=== PATIENT | female | born 1985 | race Caucasian/White ===

== ENCOUNTER → 2018-04-07 12:33 | Outpatient (CLI) | payer OTHER, SELFPAY ==
--- NOTE | 2018-04-07 12:34 | DI.US.S_ITS ---
PROCEDURE: US OB >= 14 WEEKS FETUS INDICATIONS: ANATOMY OUTSIDE/PRIOR DATING DATA: Last menstrual period (LMP): 11/11/17. LMP-based estimated date of delivery (MARILIN): 08/18/18. First dating scan (date and location): 12/19/17. Estimated date of delivery (MARILIN) from first dating scan: 08/19/18. TECHNIQUE: Real-time scanning was performed of the fetus, with image documentation and biometric measurements. Endovaginal scanning: No COMPARISON: [facility], , OB >= 14 WEEKS FETUS, 03/14/2018, 12:18. FINDINGS: General: A single living intrauterine gestation is present. Presentation: Oblique. Placenta: Placental position is posterior, without previa. Amniotic fluid index: 15.5 cm, normal range is 5-24 cm. heart rate: 150 beats per minute. Maternal cervical canal: 3.3 cm long. Normal lower limit is 2.5 cm. biometrics: Biparietal diameter: 20 weeks 6 days Head circumference: 20 weeks 6 days Abdominal circumference: 21 weeks 2 days Femur length: 21 weeks 1 day Estimated gestational age from initial scan: 20 weeks 6 days Composite gestational age from present scan: 21 weeks Estimated weight and percentile: 403 g; 61st percentile Measurement variability for biometric dating: +/- 7 days from 14 weeks to 15 weeks 6 days gestation, +/- 10 days from 16 weeks to 21 weeks 6 days gestation, +/- 2 weeks from 22 weeks to 27 weeks 6 days gestation, +/- 3 weeks for 28 weeks gestation or later. weight reference: 4500 g or EFW >90/95% is considered macrosomia or large for gestational age. EFW <10% is small for gestational age. EFW 5% or less is considered intra-uterine growth restriction. Anatomic survey: Neuro: Ventricles are non-dilated at less than 10 mm. Cisterna magna is normal at 3-11 mm. Cerebellum is normal in size and morphology. Nuchal skin fold: Normal at less than 6 mm between 14-21 weeks gestational age. Face: Nose and lips, facial profile are normal. Spine: No evidence for spina bifida. Heart: 4-chambered heart is present, with normal ventricular outflow tracts. Diaphragm: Diaphragm is intact. Stomach: Left-sided stomach is present. Kidneys: No hydronephrosis. Normal is less than 5 mm in 2nd trimester, less than 7 mm in 3rd trimester. Cord: 3-vessel cord has orthotopic insertion. Bladder: Normal in size. Extremities: All 4 extremities identified. IMPRESSION: 1. Normal interval growth. 2. Normal anatomic survey. Dictated by: Nasir BROWN Interpreted: Jose Maria Romero MD on 04/07/2018 at 15:24 Approved by: Papi Romero M.D. on 04/07/2018 at 16:28
== END ==
PROVIDERS: PCP Naturopath; Visit Provider Specialist
DX: Z36.89 Encounter for other specified antenatal screening (principal); Z3A.21 21 weeks gestation of pregnancy
CPT/HCPCS: 76811

== ENCOUNTER → 2018-04-09 08:53 | Outpatient (CLI) | payer OTHER, SELFPAY ==
[2018-04-09 14:23] LABS: Urine N gonorrhoeae NOT DETECTED
[2018-04-09 14:27] LABS: Urine Chlamydia NOT DETECTED
== END ==
PROVIDERS: PCP Naturopath; Visit Provider Specialist
DX: Z3A.21 21 weeks gestation of pregnancy (principal)
CPT/HCPCS: 87491; 87591

== ENCOUNTER → 2018-05-15 11:22 | Outpatient (CLI) | payer OTHER, SELFPAY ==
[2018-05-15 13:42] LABS: Hematocrit 32.4 % (36-46); Hemoglobin 11.2 g/dL (12.0-16.0)
[2018-05-15 14:00] LABS: GTT (PREG) 1 Hour PP 50gm Dose 105 mg/dL (76-139)
== END ==
PROVIDERS: Visit Provider Specialist
DX: Z3A.26 26 weeks gestation of pregnancy (principal)
CPT/HCPCS: 36415; 82950; 85014; 85018

== ENCOUNTER → 2018-06-23 16:34 | Outpatient (CLI) | payer OTHER, SELFPAY ==
[2018-06-23 16:51] LABS: Hematocrit 32.4 % (36-46)
== END ==
PROVIDERS: PCP Naturopath; Visit Provider Specialist
DX: Z3A.26 26 weeks gestation of pregnancy (principal)
CPT/HCPCS: 36415; 85014; 85018

== ENCOUNTER → 2018-07-21 10:28 | Outpatient (CLI) | payer OTHER, SELFPAY ==
[2018-07-22 08:40] LABS: Strep Grp B PCR POS for Grp B Strep
== END ==
PROVIDERS: PCP Naturopath; Visit Provider Specialist
DX: Z34.03 Encounter for supervision of normal first pregnancy, third trimester (principal); Z3A.36 36 weeks gestation of pregnancy
CPT/HCPCS: 87653

== ENCOUNTER 2018-08-07 19:09 | Outpatient (CLI) | payer OTHER, SELFPAY | END 2018-08-07 20:00 | disposition home or self-care (01) | LOC: OB 08-11 10:44 | PROVIDERS: PCP Naturopath | DX: Z34.83 Encounter for supervision of other normal pregnancy, third trimester (principal); Z3A.38 38 weeks gestation of pregnancy | CPT/HCPCS: 59025; G0378; G0379 ==

== ENCOUNTER 2018-08-13 10:46 | Inpatient (IN) | payer OTHER, SELFPAY ==
[2018-08-13] MEDS: LACTATED RINGERS 1,000 ML 100 ML IV ×2 (11:20→21:04)
[2018-08-13] MEDS: PENICILLIN G POTASSIUM 5,000,000 UNIT in DEXTROSE 5% IN WATER 250 ML IV (11:30)
[2018-08-13] MEDS: OXYTOCIN PREMIX 30 UNIT/500 ML PLAST..BAG IV (12:00)
[2018-08-13 12:23] VITALS: BP 124/74
[2018-08-13 12:24] LABS: Add Manual Diff / Slide Review NO; Basophils Percent Auto 0.5 % (0-2); Eosinophils Percent Auto 0.6 % (2-4); Hematocrit 35.2 % (36-46); Hemoglobin 11.6 g/dL (12.0-16.0); Lymphocytes Percent Auto 14.4 % (25-40); Mean Corpuscular HGB Conc 32.9 % (30-36); Mean Corpuscular Hemoglobin 26.3 PG (26-34); Monocytes Percent Auto 7.5 % (3-14); Neutrophils Absolute Auto 6400 /uL (3000-5900); Platelet Count 235 X10^3/uL (150-400); Red Blood Cell Count 4.41 X10^6/uL (4.0-5.2); Red Cell Distribution Width 16.1 % (11.6-14.8); White Blood Cell Count 8.3 X10^3/uL (4.5-11.0)
[2018-08-13] MEDS: PENICILLIN G POTASSIUM 3,000,000 UNIT/50 ML FROZ.PIGGY 100 UNIT IV ×2 (14:30→19:21)
--- NOTE | 2018-08-13 17:00 | P.HPOB_ITS ---
OB HPI Date/Time Date of admission: 08/13/18 Date Patient Seen: 08/13/18 Time Patient Seen: 11:56 History of Present Condition Chief complaint: OBSERVATION : 1 Para: 0 Estimated Date of Delivery: 08/18/18 Estimated Gestational Age (weeks): 39 Narrative: Regina Stanton is a 33 year old female admitted for induction for advanced cervical dilation at term with positive group B strep culture Indications Indication for induction OB: other (Advanced cervical dilation at term with positive group B strep culture) History of Present care: good care, initiated at week # (8), number of visits (12) and pounds weight gain (34) Dating criteria: LMP confirmed by 1st trimester US Ultrasounds: normal mid trimester US Obstetrical complications: none Medical complications: none Preadmission Labs Blood type: O (+) positive -: Antibody screen: negative, GBS status: positive, HBsAG: negative, HIV: negative, HSV 1: positive, HSV 2: negative and RPR/VDLR: negative -: Chlamydia screen: not detected and Gonorrhea screen: not detected -: Rubella: not immune and Varicella: immune HCAB: negative 1 hr GTT: 105 Evaluation Evaluation Baseline heart rate: 130 Variability: Moderate (11-25) monitor accelerations: Present monitor decelerations: Absent Uterine Contraction Intensity: Mild Category of Tracing: I Cervical dilation (cm): 6 Cervical effacement (%): 100 station: -4 Laboratory results: Laboratory Tests 08/13/18 08/13/18 11:30 11:30 WBC 8.3 RBC 4.41 Hgb 11.6 L Hct 35.2 L MCV 80.0 MCH 26.3 MCHC 32.9 RDW 16.1 H Plt Count 235 Neut % (Auto) 77.0 H Lymph % (Auto) 14.4 L [place] % (Auto) 7.5 Eos % (Auto) 0.6 L Baso % (Auto) 0.5 Neut # (Auto) 6400 H Blood Type O Positive Antibody Screen Negative PFSH Medical History H/O menorrhagia (Chronic) Hx of migraines (Chronic) Surgical History History of cholecystectomy (Inactive) Social History Smoking Status: Never smoker Meds Home Medications Medication Instructions Recorded Confirmed Type obumtbahmx-axqdcoruovqfs-dhwcovdy 1 cap PO Q4H PRN #20 cap 06/27/18 Rx 50 mg-300 mg-40 mg capsule Allergies Allergy/AdvReac Type Severity Reaction Status Date / Time acetaminophen [From VICODIN] Allergy Mild CHEST PAIN Unverified 01/22/18 11:54 hydrocodone [From VICODIN] Allergy Mild CHEST PAIN Unverified 01/22/18 11:54 NARCOTICS Allergy Mild N/V Uncoded 01/22/18 11:54 Review of Systems Review of Systems Patient denies any signs or symptoms of preeclampsia. No leakage of fluid. Good movement. No regular contractions. No fevers. All systems reviewed & are unremarkable except as noted in HPI and below Exam Vital Signs (past 8 hours): - 08/13/18 12:23 Blood Pressure 124/74 Narrative Exam Narrative: HEENT exam within normal limits. Lungs are clear to auscultation and percussion. Heart is regular rate and rhythm no S3-S4 or murmurs. Abdomen is soft, nontender. Gravid uterus with vertex infant. Extremities with trace edema and nontender Objective Labs Result Diagrams: 08/13/18 11:30 Labs: Laboratory Results - last 24 hr 08/13/18 08/13/18 11:30 11:30 WBC 8.3 RBC 4.41 Hgb 11.6 L Hct 35.2 L MCV 80.0 MCH 26.3 MCHC 32.9 RDW 16.1 H Plt Count 235 Neut % (Auto) 77.0 H Lymph % (Auto) 14.4 L [place] % (Auto) 7.5 Eos % (Auto) 0.6 L Baso % (Auto) 0.5 Neut # (Auto) 6400 H Blood Type O Positive Antibody Screen Negative Assessment and Plan (1) 39 weeks gestation of : Current visit: Yes Status: Acute (2) Third trimester : Current visit: Yes Status: Acute Plan: Plan: 39 and 2/7 week with advanced cervical dilation and positive group B strep admitted for induction. Patient will receive IV penicillin and begun on Pitocin prior to AROM induction. Anticipate vaginal delivery.
[2018-08-13] MEDS: ONDANSETRON 4 MG/2 ML INJ IV (21:03)
--- NOTE | 2018-08-13 23:29 | P.PCNOB_ITS ---
Events: Labor Induction (Thirty-nine weeks with advanced cervical dilation and positive group B strep culture) Delivery date: 08/13/18 Induction method: per pitocin protocol Delivery monitor: external FHT and external uterine Route of delivery: Laceration description: None Estimated blood loss (mL): 100 Anesthesia type: Epidural [place] Baby 1: Infant gender: Male Presentation: compound (Hand next to the head) position: Right Occiput Anterior Placenta delivery description: Spontaneous cord vessel description: Around Extremity x1 (Shoulder) score (1 min): 7 score (5 min): 9 Narrative: Patient arrived on Labor and delivery for Pitocin induction for advanced cervical dilation and positive group B strep culture. She was started on IV Pitocin. She received an epidural catheter for pain control. She was a ROM for clear fluid. heart tones category 1 to category 2 throughout labor. She delivered spontaneously over an intact perineum a viable male infant. The infant was initially placed on maternal abdomen but then briefly taken to the warmer where he responded just to stimulation. He was quickly returned to maternal abdomen. The had a shoulder cord and presented with a hand next to the head. The placenta delivered spontaneously, intact, with 3 vessels. There were no cervical, vaginal, or perineal tears. Weight &3 10 oz, 3464gm. Plan for aftercare: Routine post vaginal delivery
[2018-08-14 05:41] LABS: Add Manual Diff / Slide Review NO; Basophils Percent Auto 0.1 % (0-2); Hematocrit 31.7 % (36-46); Hemoglobin 10.6 g/dL (12.0-16.0); Lymphocytes Percent Auto 6.6 % (25-40); Mean Corpuscular HGB Conc 33.4 % (30-36); Mean Corpuscular Hemoglobin 26.6 PG (26-34); Mean Corpuscular Volume 79.5 fL (80-100); Monocytes Percent Auto 6.7 % (3-14); Neutrophils Absolute Auto 13100 /uL (3000-5900); Neutrophils Percent Auto 86.6 % (50-75); Platelet Count 215 X10^3/uL (150-400); Red Blood Cell Count 3.99 X10^6/uL (4.0-5.2); Red Cell Distribution Width 16.2 % (11.6-14.8); White Blood Cell Count 15.1 X10^3/uL (4.5-11.0)
[2018-08-14] MEDS: DOCUSATE 250 MG CAPSULE PO (08:19)
[2018-08-14] MEDS: DERMOPLAST SPRAY 20% 60 ML 1 SPRAY TOP (08:19)
[2018-08-14] MEDS: IBUPROFEN 600 MG TABLET PO ×3 (08:22→20:33)
--- NOTE | 2018-08-14 17:08 | PM.OBPN.1 ---
Subjective - OB Interval history: First day post vaginal delivery Patient comments: no complaints baby status: doing well [place] feeding status: exclusively breast feeding Narrative: Patient is doing well. She has no signs or symptoms of preeclampsia. She is ambulatory. She has minimal bleeding. Minimal pain. Date Patient Seen: 08/14/18 Time Patient Seen: 13:08 Exam Narrative Exam Narrative: Abdomen is soft, nontender. Uterus is firm, at U, nontender. Mild lochia. Extremities with trace edema, nontender. Objective Labs Result Diagrams: 08/14/18 05:05 Labs: Laboratory Results - last 24 hr 08/14/18 05:05 WBC 15.1 H D RBC 3.99 L Hgb 10.6 L Hct 31.7 L MCV 79.5 L MCH 26.6 MCHC 33.4 RDW 16.2 H Plt Count 215 Neut % (Auto) 86.6 H Lymph % (Auto) 6.6 L [place] % (Auto) 6.7 Eos % (Auto) 0.0 L Baso % (Auto) 0.1 Neut # (Auto) 40480 H Assessment & Plan (1) 39 weeks gestation of : Status: Acute Current Visit: Yes (2) Third trimester : Status: Acute Current Visit: Yes (3) Vaginal delivery: Status: Acute Assessment and plan: Normal day 1. Likely home in a.m. Current Visit: Yes Plan day: 1 plan OB: routine care Time Spent With Patient Total time spent is greater than 50% in coordination of care (as documented) at patient's floor/unit and/or counseling patient: less than 15 minutes
--- NOTE | 2018-08-14 17:11 | P.PNOB_ITS ---
Subjective - OB Interval history: First day post vaginal delivery Patient comments: no complaints baby status: doing well [place] feeding status: exclusively breast feeding Narrative: Patient is doing well. She has no signs or symptoms of preeclampsia. She is ambulatory. She has minimal bleeding. Minimal pain. Date Patient Seen: 08/14/18 Time Patient Seen: 13:08 Exam Narrative Exam Narrative: Abdomen is soft, nontender. Uterus is firm, at U, nontender. Mild lochia. Extremities with trace edema, nontender. Objective Labs Result Diagrams: 08/14/18 05:05 Labs: Laboratory Results - last 24 hr 08/14/18 05:05 WBC 15.1 H D RBC 3.99 L Hgb 10.6 L Hct 31.7 L MCV 79.5 L MCH 26.6 MCHC 33.4 RDW 16.2 H Plt Count 215 Neut % (Auto) 86.6 H Lymph % (Auto) 6.6 L [place] % (Auto) 6.7 Eos % (Auto) 0.0 L Baso % (Auto) 0.1 Neut # (Auto) 63528 H Assessment & Plan (1) 39 weeks gestation of : Status: Acute Current Visit: Yes (2) Third trimester : Status: Acute Current Visit: Yes (3) Vaginal delivery: Status: Acute Assessment and plan: Normal day 1. Likely home in a.m. Current Visit: Yes Plan day: 1 plan OB: routine care Time Spent With Patient Total time spent is greater than 50% in coordination of care (as documented) at patient's floor/unit and/or counseling patient: less than 15 minutes
[2018-08-15] MEDS: IBUPROFEN 600 MG TABLET PO (04:10)
--- NOTE | 2018-08-15 09:17 | PM.DS.1 ---
History of Present Illness Date Patient Seen: 08/15/18 Time Patient Seen: 09:20 Chief complaint: OBSERVATION Narrative: day 1. Vaginal delivery Discharge Providers Date of admission: 08/13/18 10:46 Primary care physician: Brianna Stanley ND Consults: 08/13/18 11:06 Consult to Anesthesiology Urgent Comment: Consulting Provider: Anesthesiologist Reason for consultation: Epidural Has provider been notified: No 08/14/18 01:54 Consult to Veterinary Surgeon Routine Comment: Discharge provider: Shira Osuna MD Discharge Date: 08/15/18 Summary Discharge Diagnosis: Vaginal delivery Hospital Course: Patient arrived on Labor and delivery for induction for advanced cervical dilation and positive group B strep culture. She received IV antibiotics, IV Pitocin, epidural catheter. She had a spontaneous vaginal delivery of a viable male weighing 7 lb 10 oz, 3464 g. Patient and infant did well . She denies any signs or symptoms of preeclampsia. She is urinating and ambulating well. She has no fevers. Her bleeding is minimal. Patient's blood type is O positive she is rubella nonimmune so received rubella vaccine prior to discharge. Status at Discharge Functional status at discharge: independent ambulation Overall status at discharge: patient is progressing back to baseline Time Spent with Patient Less than 30 minutes Exam Vital Signs (past 8 hours): Blood pressure 103/70, pulse of 78, temperature 98.4? Narrative Exam Narrative: Abdomen is soft, nontender. Uterus is firm, at U, nontender. Mild lochia. Extremities with trace edema nontender. Objective Labs Result Diagrams: 08/14/18 05:05 Discharge Plan Discharge Plan Patient Disposition: Home Discharge Med Rec/Prescriptions Prescriptions: No Action xmhrqwnnuu-nsawajrevozrs-obqf [Fioricet] 50-300-40 mg capsule 1 cap PO Q4H PRN (Reason: headache) Qty: 20 RF: 0 Follow up/Referrals: Brianna Stanley ND [Primary Care Provider] - Shira Osuna MD [Physician] - 1 Month Provider Discharge Instructions Diet: Regular Activity: Nothing in vagina for 4 weeks Skin/Wound/Dressing Care Report to your healthcare provider any signs of infection, such as:: chills, fever, increased pain and unusual drainage Discharge Data Primary Care Provider: Brianna Stanley Attending Provider: Shira Osuna Admit Date/Time: 08/13/18 10:46
[2018-08-15 09:38] VITALS: BP 103/70; PULSE 78; RESP 16; TEMP 36.9
[2018-08-15] MEDS: MEASLES,MUMPS,RUBELLA VACC/PF 0.5 ML VIAL SUBCUT (12:43)
== END 2018-08-15 13:00 | disposition home or self-care (01) | DRG 807 ==
PROVIDERS: Admitting Provider Specialist; PCP Naturopath; Visit Provider Specialist
DX: O99.824 Streptococcus B carrier state complicating childbirth (principal); Z37.0 Single live birth; Z3A.39 39 weeks gestation of pregnancy; O32.6XX0 Maternal care for compound presentation, not applicable or unspecified
CPT/HCPCS: 01967; 36415; 59050; 59400; 85025; 86850; 86900; 86901; G0379; J2405; J2540; J2590; J3010

== ENCOUNTER → 2021-07-18 09:14 | Outpatient (CLI) | payer OTHER, SELFPAY ==
[2021-07-18 09:52] LABS: Add Manual Diff / Slide Review NO; Basophils Absolute Auto 0 /uL (0-100); Basophils Percent Auto 0.9 % (0-2); Eosinophils Absolute Auto 100 /uL (0-450); Eosinophils Percent Auto 1.8 % (2-4); Hematocrit 39.4 % (36-46); Hemoglobin 13.2 g/dL (12.0-16.0); Lymphocytes Absolute Auto 1400 /uL (1100-4500); Lymphocytes Percent Auto 28.3 % (25-40); Mean Corpuscular HGB Conc 33.5 % (30-36); Mean Corpuscular Hemoglobin 27.8 PG (26-34); Monocytes Absolute Auto 300 /uL (0-900); Monocytes Percent Auto 5.5 % (3-14); Neutrophils Absolute Auto 3200 /uL (1500-7000); Neutrophils Percent Auto 63.5 % (50-75); Platelet Count 317 X10^3/uL (150-400); Red Blood Cell Count 4.75 X10^6/uL (4.0-5.2); Red Cell Distribution Width 12.9 % (11.6-14.8)
[2021-07-18 10:24] LABS: Iron 105 ug/dL (37-170)
[2021-07-18 10:34] LABS: Percent Iron Saturation 31 % (15-50); Total Iron Binding Capacity 337 ug/dL (265-497)
[2021-07-18 10:55] LABS: Ferritin 33 ng/mL (6-137)
== END ==
PROVIDERS: PCP Naturopath; Referring Provider Registered Nurse; Visit Provider Registered Nurse
DX: N92.4 Excessive bleeding in the premenopausal period (principal)
CPT/HCPCS: 36415; 82728; 83540; 83550; 85025

== ENCOUNTER → 2022-05-17 14:37 | Outpatient (CLI) | payer OTHER, SELFPAY ==
--- NOTE | 2022-05-17 14:40 | DI.US.S_ITS ---
PROCEDURE: US OB >= 14 WEEKS FETUS INDICATIONS: 20 WK ANATOMY SCAN. OUTSIDE/PRIOR DATING DATA: Last menstrual period (LMP): 12/18/2021 LMP-based estimated date of delivery (MARILIN): 09/24/2022. First dating scan (date and location): Not available Estimated date of delivery (MARILIN) from first dating scan: Not available The calculations are made using the clinically provided MARILIN of 09/24/2022 TECHNIQUE: Real-time scanning was performed of the fetus, with image documentation and biometric measurements. Endovaginal scanning: Not indicated COMPARISON: [facility], , OB >= 14 WEEKS FETUS, 06/09/2018, 11:15. FINDINGS: General: A single living intrauterine gestation is present. Presentation: Breech/transverse Placenta: Placental position is anterior, without previa. Amniotic fluid index: 9.8 cm, normal range is 5-24 cm. Single deepest vertical pocket is 3.3 cm. heart rate: 144 beats per minute. Maternal cervical canal: 5.1 cm long. Normal lower limit is 2.5 cm. biometrics: Biparietal diameter: 4.8 cm, 20 weeks, 4 days. Head circumference: 18.5 cm, 20 weeks, 6 days. Abdominal circumference: 15.1 cm, 20 weeks, 2 days. Femur length: 3.5 cm, 21 weeks, 1 day. Clinically estimated gestational age: 21 weeks, 3 days. Composite gestational age from present scan: 20 weeks, 5 days. Estimated weight and percentile: 374 grams, 15 percent. Anatomic survey: Neuro: Ventricles are non-dilated at less than 10 mm. Cisterna magna is normal at 3-11 mm. Cerebellum is normal in size and morphology. Nuchal skin fold: Normal at less than 6 mm between 14-21 weeks gestational age. Face: Nose and lips, facial profile are normal. Spine: spine is not well seen due to position. Heart: 4-chambered heart is present, with normal ventricular outflow tracts. Diaphragm: Diaphragm is intact. Stomach: Left-sided stomach is present. Kidneys: No hydronephrosis. Normal is less than 5 mm in 2nd trimester, less than 7 mm in 3rd trimester. Cord: 3-vessel cord is seen. Core insertion on placenta is not well seen. Bladder: Normal in size. Extremities: All 4 extremities identified. IMPRESSION: 1. Single live intrauterine gestation with fetus in breech/transverse presentation. heart rate is 144 beats per minute. Normal amount of amniotic fluid. Estimated gestational age based on current study is 20 weeks, 5 days. Estimated gestational age based on last menstrual period is 21 weeks, 3 days. Estimated weight is at 15 percent. 2. Limited evaluation of spine and placental cord insertion. Rest of the anatomic survey is normal. We strive to produce accurate, complete, and clear reports of imaging services. To assist us in improving patient care, this report was composed using standard report templates and voice recognition software. Therefore, it may contain abnormal punctuation, insertions and/or omissions. Occasional wrong-word or sound-alike substitutions may occur. Though we review the report and make efforts to correct it, we do recommend that the report be read carefully in proper context to recognize any text inaccuracies. Dictated by: Joshua Bassett M.D. on 05/18/2022 at 11:24 Approved by: Joshua Bassett M.D. on 05/18/2022 at 11:28
== END ==
PROVIDERS: PCP Naturopath; Referring Provider Nurse Practitioner Obstetrics & Gynecology; Visit Provider Nurse Practitioner Obstetrics & Gynecology
DX: Z34.92 Encounter for supervision of normal pregnancy, unspecified, second trimester (principal); Z3A.20 20 weeks gestation of pregnancy
CPT/HCPCS: 76811

== ENCOUNTER → 2022-06-28 07:58 | Outpatient (CLI) | payer OTHER, SELFPAY ==
[2022-06-28 10:28] LABS: Hematocrit 34.3 % (36-46); Mean Corpuscular Hemoglobin 28.8 PG (26-34); Mean Corpuscular Volume 82.4 fL (80-100); Platelet Count 276 X10^3/uL (150-400); Red Blood Cell Count 4.17 X10^6/uL (4.0-5.2); Red Cell Distribution Width 13.3 % (11.6-14.8); White Blood Cell Count 8.6 X10^3/uL (4.5-11.0)
[2022-06-28 11:17] LABS: Glucose Fasting 81 mg/dL (70-100)
[2022-06-28 11:29] LABS: Glucose 1 Hour 181 mg/dL (70-170)
[2022-06-28 11:50] LABS: Ferritin 7 ng/mL (6-137)
[2022-06-28 14:25] LABS: Glucose Tol Interpretation INTERPRETATION
[2022-06-28 14:32] LABS: Glucose 2 Hour 154 mg/dL (70-140)
== END ==
PROVIDERS: PCP Naturopath; Referring Provider Nurse Practitioner Obstetrics & Gynecology; Visit Provider Nurse Practitioner Obstetrics & Gynecology
DX: Z34.90 Encounter for supervision of normal pregnancy, unspecified, unspecified trimester (principal); Z3A.26 26 weeks gestation of pregnancy
CPT/HCPCS: 36415; 82728; 82951; 82952; 85027

== ENCOUNTER → 2022-07-11 16:00 | Outpatient (CLI) | payer OTHER, SELFPAY ==
--- NOTE | 2022-07-17 08:56 | DIAB.GDA ---
Initial Gestational Diabetes Assessment Name: Regina Stanton Date: 07/11/22 Time: 430-530p Dx: Gestational Diabetes Provider: Pierce MARILIN: 09/24/22 Weeks: 30 Regina presents for initial visit for newly dx GDM. FH of DM with maternal grandmother. No PMH of GDM. Previous child born <8# 4 years ago. Regina is having a boy! States she has drastically changed her diet by cutting out many carbs. She also endorses gluten intolerance over the last 7 years. Current CHO intake <175g rec by INSPECTORS AND REGULATORY OFFICERS during . Not yet checking BG. Has rx for meter and supplies. Diet Recall: 6-730a: string cheese and sausage 8a: veggies and meat/eggs 1030a: chicken salad on lettuce wrap 12p: leftovers 2 snacks in afternoon: celery and PB or celery and cream cheese or stuffed harris peppers or meat and cheese 5p: ground poultry with taco salad, no beans or rice 7-8p: nuts or meat Beverages: 72-96oz water Anthropometrics: Ht: 63 Wt: 190# reported Prepregnancy wt: 175# Physical Activity: 10 min walks after each meal + 3days per week walks 45 min Self-Monitoring Blood Glucose: None Diabetes Medications: None Pertinent Labs: OGTT 81, 181 H, 154 H hgA1c at 10 weeks: 5% Nutrition Rx: Carbohydrates: Daily: 175-210g Meal: 45-60g lunch and dinner; 30g breakfast Snack: 15-30g Nutrition Diagnosis: Altered nutrition related lab value r/t GDM dx aeb recent OGTT Inadequate CHO intake r/t lack of nutrition knowledge with new dx of GDM aeb pt report and diet recall Intervention: This participant was very receptive. Provided appropriate educational handouts. Discussed the following topics: GDM pathophysiology and impact of hyperglycemia on mom and baby Risk for T2DM for mom and baby in the future Ways to reduce risk T2DM Plate Method, meal timing, carb counting, pairing macronutrients and spreading out CHO for better BG management Blood glucose goals; importance of checking 4x per day (FBG and pc) Impact of macronutrients on blood glucose Recommended servings for carbohydrates at meals and snacks Brainstormed appropriate meal plan based on her food preferences Role of physical activity and following provider guidelines for safety Goals: Add carbs back into diet in moderation Call [facility] tomorrow for SMBG supplies Check BG 4 x per day Continues walking Follow-up: BRAYAN HOSKINS follow-up in one week Aidee Wilkerson RDN, GATO Certified Diabetes Care and Freight Flow Sales Leader T: [phone] F: [phone] [email or web address] Thank you for this referral
== END ==
PROVIDERS: PCP Naturopath; Referring Provider Nurse Practitioner Obstetrics & Gynecology; Visit Provider Nurse Practitioner Obstetrics & Gynecology
DX: O24.419 Gestational diabetes mellitus in pregnancy, unspecified control (principal); Z3A.30 30 weeks gestation of pregnancy; Z71.3 Dietary counseling and surveillance
CPT/HCPCS: 97802

== ENCOUNTER → 2022-07-16 10:37 | Outpatient (CLI) | payer OTHER, SELFPAY ==
--- NOTE | 2022-07-16 | DI.US.S_ITS ---
PROCEDURE: US OB FOLLOW UP INDICATIONS: FOLLOW UP SPINE AND PLACENTAL CORD INSERTION OUTSIDE/PRIOR DATING DATA: Last menstrual period (LMP): 12/18/21. LMP-based estimated date of delivery (MARILIN): 09/24/22. First dating scan (date and location): Unknown. Estimated date of delivery (MARILIN) from first dating scan: Not applicable. The calculations are made using the working MARILIN of 09/24/22. TECHNIQUE: Real-time scanning was performed of the fetus, with image documentation. Endovaginal scanning: Not performed COMPARISON: [facility], , US OB >= 14 WEEKS FETUS, 05/17/2022, 14:52. FINDINGS: A single living intrauterine gestation is present. Presentation: Vertex. Placenta: Placental position is anterior, without previa. Amniotic fluid index: 15.7 cm, normal range is 5-24 cm. Single deepest vertical pocket is 5.3 cm. heart rate: 139 beats per minute. Maternal cervical canal: Closed and 4.9 cm long. Normal lower limit is 2.5 cm. Clinically estimated gestational age: 30 weeks 0 days The umbilical cord inserts along the inferolateral margin of the placenta between four and 11 mm from the edge. cervical and thoracic spine and skin covering spine appear normal, however lumbosacral spine and overlying skin are not well seen due to lie. IMPRESSION: 1. Single living intrauterine . 2. Incomplete visualization of the lumbosacral spine secondary to lie. 3. Marginal cord insertion. 4. Repeat follow-up ultrasound for spine and reassessing cord insertion later in could be considered. Dictated by: Alyse Nicolas M.D. on 07/16/2022 at 14:48 Approved by: Alyse Nicolas M.D. on 07/16/2022 at 14:55
== END ==
PROVIDERS: PCP Naturopath; Referring Provider Nurse Practitioner Obstetrics & Gynecology; Visit Provider Nurse Practitioner Obstetrics & Gynecology
DX: Z3A.30 30 weeks gestation of pregnancy; Z36.2 Encounter for other antenatal screening follow-up
CPT/HCPCS: 76816

== ENCOUNTER → 2022-08-02 08:30 | Outpatient (CLI) | payer OTHER, SELFPAY ==
--- NOTE | 2022-08-02 10:14 | DIAB.GDFU ---
Follow-up Gestational Diabetes Assessment Name: Regina Stanton Date: 08/02/22 Time: 830-9a Dx: Gestational Diabetes Provider: Pierce MARILIN: 09/24/22 Weeks: 32 Regina presents for follow-up visit virtually using [employer] platform. Has been working on adding more carbs into diet, though still below BIOLOGIST at about 110-140g CHO per day. Having some early satiety with meals and heartburn all day. Tums not helping. Drinking baking soda with water. Discussed this with her sister, an RN. Encouraged her to discuss with battery container tester. She agreed. Difficulty sleeping. Feeling overall uncomfortable and waking frequently. Diet Recall: 0a: sausage, eggs, veggies, piece of GF toast or bagel 11a: 1-2c chickpea pasta with tomato or pesto sauce (45-60g CHO) or ?-1 harris pepper sandwich or salad with chicken Sn: apples and PB or celery and nut butter or hummus with veggies or meat/cheese with fruit 345p: same as above snack 6-7p: meat, veggie, 1 potato or 1c GF pasta Beverages: 72-96oz water Sees Lola next week. Anthropometrics: Ht: 63 Wt: 187.5# reports +2# gain since last visit Last visit: 190# reported (from provider office- states this is usually higher than home wt) Prepregnancy wt: 175# Physical Activity: Was going well until the recent smoke. Trying to be active inside. Prior activity: 10 min walks after each meal + 3days per week walks 45 min Self-Monitoring Blood Glucose: States she cannot access her meter log book. Will send numbers after appt. 1 hour highest was 144 mg/dl. Reports most readings below 140 (usually in the 130s range). FBG range from 88-99 mg/dL. Reports most <95 mg/dL. States 2 or less above 95 mg/dL in the last week. Asking about checking after the 1 hr Diabetes Medications: None Pertinent Labs: OGTT 81, 181 H, 154 H hgA1c at 10 weeks: 5% Nutrition Rx: Carbohydrates: Daily: 175-210g Meal: 45-60g lunch and dinner; 30g breakfast Snack: 15-30g Nutrition Diagnosis: Altered nutrition related lab value r/t GDM dx aeb recent OGTT Inadequate CHO intake r/t lack of nutrition knowledge with new dx of GDM aeb pt report and diet recall Intervention: This participant was very receptive. Provided appropriate educational handouts. Discussed the following topics: Recent blood sugar results and impact of food and hormones BIOLOGIST for CHO during . Ways to improve nutrition with early satiety, ie shakes/ smoothies Review of macronutrient recommendations during Physical activity barriers, ie smoke Physical activity plan/progress Heartburn MNT Goals: Add carbs back into diet in moderation- improved Call [facility] tomorrow for SMBG supplies- met Check BG 4 x per day - met Continues walking - d/c currently Try balanced smoothies- new Resume walks after the smoke improves- new Follow-up: BRAYAN HOSKINS follow-up in two weeks Aidee Wilkerson RDN, GATO Certified Diabetes Care and Gold Frame Assembler T: [phone] F: [phone] [email or web address] Thank you for this referral
== END ==
PROVIDERS: PCP Naturopath; Referring Provider Nurse Practitioner Obstetrics & Gynecology; Visit Provider Nurse Practitioner Obstetrics & Gynecology
DX: O24.419 Gestational diabetes mellitus in pregnancy, unspecified control (principal); Z3A.32 32 weeks gestation of pregnancy; Z71.3 Dietary counseling and surveillance
CPT/HCPCS: 97803

== ENCOUNTER → 2022-08-15 09:00 | Outpatient (CLI) | payer OTHER, SELFPAY ==
--- NOTE | 2022-08-15 10:44 | DIAB.GDFU ---
Follow-up Gestational Diabetes Assessment Name: Regina Stanton Date: 08/15/22 Time: Dx: Gestational Diabetes Provider: Pierce MARILIN: 09/24/22 Weeks: 34 Regina present for follow-up virtually using the [employer]-transfection platform. Reports she has been discussing DM risk with her mother. Endorses strong hx of PDM and DM in her family. Interested in ways to reduce risk. Does not currently have a PCP. Difficulty sleeping from 2-5a. FBG seem slightly increased but still in goal. Increase might be due to sleep interruption or occasional early childhood educator aide snack (not a true fasting). Adding more CHO to her diet, including adding bread to chicken/egg salad, avocado toast. Smoothiesgreek yogurt, berries, and almond milk Heartburn on/off. Might draft roller picker OTC meds to help. Reports 2 years of with her son. Plans to breastfeed with this baby as well. Anthropometrics: Ht: 63 Wt: 192# reported home scale (up from 187.5# 2 weeks ago) Prepregnancy wt: 175# Physical Activity: : restarted walks after smoke. Trying to move more inside on rainy days. Usually walks for 10-15 minutes 2-3x per day. Self-Monitoring Blood Glucose: All FBG in goal. A few pc reading lightly above goal with experimenting with adding more CHO to meet nutrition needs. Date Pre Post Pre Post Pre Post 08/09 91 141 129 142 08/10 88 137 142 08/11 89 140 129 08/12 92 142 137 133 08/13 91 139 130 135 08/14 93 140 141 140 08/15 91 Diabetes Medications: None Pertinent Labs: OGTT 81, 181 H, 154 H hgA1c at 10 weeks: 5% Intervention: This participant was very receptive. Provided appropriate educational handouts. Discussed the following topics: Recent blood sugar results and impact of food and hormones, sleep, and snacking Review of macronutrient recommendations during and Benefits, resources, and nutrition for recommendations for nutrition and physical activity recommendations for T2DM risk reduction OGTT at 6-12 weeks Checking blood sugars twice per week (goal: fasting <100 mg/dL and 2 hour pc <140 mg/dL) until 6 week check-up HgA1c q 1-3 years. Goals: Try balanced smoothies- met Resume walks after the smoke improves- met establish with PCP- new HgA1c q 1-3 years- new OGTT 6-12 weeks- new Add when you are having a morning snack prior to FBG check on log book- new Follow-up: BRAYAN HOSKINS follow-up prn. Overall Regina is managing her GDM very well. Most BG are in goal and she is aiming for balanced intake. Encouraged her to call or message me with any questions or follow-up needs. She agreed. Aidee Wilkerson RDN, GATO Certified Diabetes Care and Network Security Consultant T: [phone] F: [phone] [email or web address] Thank you for this referral
== END ==
PROVIDERS: PCP Naturopath; Referring Provider Nurse Practitioner Obstetrics & Gynecology; Visit Provider Nurse Practitioner Obstetrics & Gynecology
DX: O24.419 Gestational diabetes mellitus in pregnancy, unspecified control (principal); Z3A.34 34 weeks gestation of pregnancy; Z71.3 Dietary counseling and surveillance
CPT/HCPCS: G0108

== ENCOUNTER → 2022-09-05 16:02 | Outpatient (CLI) | payer OTHER, SELFPAY ==
--- NOTE | 2022-09-05 16:03 | DI.US.S_ITS ---
PROCEDURE: US OB LIMITED INDICATIONS: GESTATIONAL DIABETES - BIOPHYSICAL PROFILE AND GROWTH OUTSIDE/PRIOR DATING DATA: Last menstrual period (LMP): 12/18/2021. LMP-based estimated date of delivery (MARILIN): 09/24/2022. TECHNIQUE: Real-time scanning was performed of the fetus, with image documentation and biometric measurements. COMPARISON: None. FINDINGS: General: A single living intrauterine gestation is present. Presentation: Vertex. Placenta: Placental position is anterior , without previa. Amniotic fluid index: 22.8 cm, normal range is 5-24 cm. Single deepest vertical pocket is 8.3 cm. heart rate: 137 beats per minute. Maternal cervical canal: Nonvisualized biometrics: Biparietal diameter: 8.7 cm, 35 week 2 day Head circumference: 31.9 cm, 35 week 2 day Abdominal circumference: 32.3 cm, 36 week 2 day Femur length: 6.6 cm, 33 week 6 day Clinically estimated gestational age: 37 week 2 day Composite gestational age from present scan: 35 week 2 day Estimated weight and percentile: 2609 g, 16th percentile Other: Biophysical profile score 8/8. Umbilical artery S/D ratios 2.6, 3.4, 3.3 IMPRESSION: Single live intrauterine consistent with a 35 week 2 day gestation by current ultrasound. Biophysical profile score 8/8. Normal umbilical artery S/D ratios Approved by: Gavin Michaels M.D. on 09/05/2022 at 16:04
== END ==
PROVIDERS: PCP Naturopath; Referring Provider Nurse Practitioner Obstetrics & Gynecology; Visit Provider Nurse Practitioner Obstetrics & Gynecology
DX: O24.419 Gestational diabetes mellitus in pregnancy, unspecified control (principal); Z3A.35 35 weeks gestation of pregnancy
CPT/HCPCS: 76815; 76819

== ENCOUNTER 2022-09-17 07:04 | Inpatient (IN) | payer OTHER, SELFPAY ==
--- NOTE | 2022-09-17 07:43 | P.HPOB_ITS ---
OB HPI Date/Time Date of admission: 09/17/22 Date Patient Seen: 09/17/22 Time Patient Seen: 07:20 History of Present Condition Chief complaint: INDUCTION : 2 Para: 1 Estimated Date of Delivery: 09/24/22 Estimated Gestational Age (weeks): 39.0 Narrative: Regina Stanton is a 37 year old female by sure LMP and 10wk US who presents for elective IOL. Springer balloon was placed in clinic yesterday evening and the Springer balloon came out at 0300 this morning. Lots of FM. No VB or LOF. complicated by GDMA1 well managed through diet and exercise. Was measuring size > dates with a growth US at 37 2/7wks revealing an DANIELLE of 22cm and EFW of 2609g (16%). Desires an epidural for pain relief. Support person is her mother. Indications Indication for induction OB: maternal discomfort History of Present care: good care, initiated at week # (10), number of visits (10) and pounds weight gain (19) Dating criteria: LMP confirmed by 1st trimester US Ultrasounds: normal mid trimester US Obstetrical complications: gestational diabetes (diet controlled ) Medical complications: none Preadmission Labs Blood type: O (+) positive -: Antibody screen: negative, GBS status: negative, HBsAG: negative and RPR/VDLR: negative -: Rubella: immune and Varicella: immune HCT: 34.3 HCAB: negative Cell-free DNA: Negative Narrative: 2hr gtt: 81/181/154 Prior (ies) History: 08/13/2018: (vaginal delivery), Fidencio, 39wks, 9 hr labor, Epidural, Male, 7 lbs 10 oz, [facility] Evaluation Evaluation Baseline heart rate: 140 Variability: Moderate (11-25) monitor accelerations: Present Monitor Decelerations: Absent Uterine Contraction Intensity: Mild Status: Category l Dilation (cm): 5 Effacement (%): 90 Dilation: >/=5 cm Effacement: >/=80% station: -4 Position of cervix: posterior Consistency: soft Mendoza score: 8 PFSH Medical History (Updated 09/17/22 @ 08:07 by Lola Pelayo CNM) Chronic cough H/O menorrhagia Hx of migraines PCOS (polycystic ovarian syndrome) Surgical History History of cholecystectomy Social History Smoking Status: Never smoker second hand exposure: No alcohol intake: current (rare celebrations) substance use type: does not use Meds Home Medications and Allergies Home Medications Medication Instructions Recorded Confirmed Type No Known Home Medications 04/05/20 04/05/20 History Allergies Allergy/AdvReac Type Severity Reaction Status Date / Time hydrocodone [From VICODIN] Allergy Mild CHEST PAIN Verified 04/05/20 12:56 NARCOTICS Allergy Mild N/V Uncoded 09/17/18 08:09 Review of Systems Review of Systems ROS: Yes All systems reviewed with the patient and are negative except as otherwise documented OB Exam Resp Effort & Inspection: normal respiratory effort Auscultation: clear to auscultation bilaterally Cardio Rate: regular rate Rhythm: regular rhythm Heart Sounds: S1 normal and S2 normal Presentation: vertex Assessment and Plan Assessment and Plan Assessment and Plan narrative: A: Term multipara Elective IOL Favorable cervix No indication for GBS prophylaxis GDMA1 Cat I FHR P: Admit, routine orders. Pitocin per protocol. Will consider AROM at next check. Reassess in 4 hours or sooner, PRN.
[2022-09-17 08:23] LABS: Add Manual Diff / Slide Review NO; Basophils Absolute Auto 0 /uL (0-100); Basophils Percent Auto 0.4 % (0-2); Eosinophils Absolute Auto 100 /uL (0-450); Eosinophils Percent Auto 0.7 % (2-4); Hematocrit 33.7 % (36-46); Hemoglobin 11.3 g/dL (12.0-16.0); Lymphocytes Absolute Auto 1300 /uL (1100-4500); Lymphocytes Percent Auto 15.9 % (25-40); Mean Corpuscular HGB Conc 33.6 % (30-36); Mean Corpuscular Hemoglobin 27.3 PG (26-34); Mean Corpuscular Volume 81.1 fL (80-100); Monocytes Absolute Auto 500 /uL (0-900); Monocytes Percent Auto 6.1 % (3-14); Neutrophils Absolute Auto 6100 /uL (1500-7000); Neutrophils Percent Auto 76.9 % (50-75); Platelet Count 230 X10^3/uL (150-400); Red Blood Cell Count 4.15 X10^6/uL (4.0-5.2); Red Cell Distribution Width 15.4 % (11.6-14.8); White Blood Cell Count 7.9 X10^3/uL (4.5-11.0)
[2022-09-17] MEDS: OXYTOCIN PREMIX 30 UNIT/500 ML PLAST..BAG IV (08:23)
[2022-09-17] MEDS: LACTATED RINGERS 1,000 ML 100 ML IV ×2 (08:23→17:54)
[2022-09-17 08:36] LABS: COVID19 -Nasal RAPID Negative (Negative)
[2022-09-17] MEDS: FENT 2MCG/ML BUPIV 0.125% EPI 200 MCG/100 ML PLAST..BAG 8 MCG EPIDURAL ×2 (11:06→19:23)
--- NOTE | 2022-09-17 11:22 | PM.OBPNLAB ---
Date/Time Date Patient Seen: 09/17/22 Time Patient Seen: 11:45 Pain Control Pain control: epidural Comments: Requested peidural prior to AROM. no comfortable and agreeable to AROM. Pelvic Exam Dilation (cm): 5 Effacement (%): 90 station: -4 Amniotic membrane status: Intact Comments: Unable to AROM d/t high station Contractions Monitor mode: External Pitocin rate (mU/min): 6 Contraction frequency (min): 4 Contraction duration (min): 1 Contraction intensity: Mild Status status: Category l Heart Rate Baseline: 145 Monitor Accelerations: Present Monitor Decelerations: Absent Monitor Variability: Moderate Assessment and Plan Assessment: induction ongoing Plan: continuous present management Comments: Continue pitocin per protocol. Reassess in 4 hours or sooner, PRN.
--- NOTE | 2022-09-17 14:09 | PM.OBPNLAB ---
Date/Time Date Patient Seen: 09/17/22 Time Patient Seen: 14:09 Pain Control Pain control: epidural Comments: Patient resting comfortably. CNM arrived to RNs reviewing FHR tracing with discussion of recurrent late decelerations since 1230pm. VS: 123/81mmHg, HR 78bpm, T 36.6C Temporal Pelvic Exam Dilation (cm): 7 Effacement (%): 90 station: -4 Amniotic membrane status: Intact Contractions Monitor mode: External Pitocin rate (mU/min): 8 Contraction frequency (min): 3 Contraction duration (min): 1 Contraction pattern: Regular Contraction intensity: Mild Status status: Category ll Heart Rate Baseline: 145 Monitor Accelerations: Absent Monitor Decelerations: Late Monitor Variability: Moderate Assessment and Plan Assessment: active labor Plan: other Comments: Stop pitocin and give 250mL LR IVFB. Will continue to monitor closely. AROM if able and/or restart pitocin 30 minutes after late decelerations resolve, if able. Will consult OB if recurrent late decelerations persist.
[2022-09-17] MEDS: ONDANSETRON 4 MG/2 ML INJ IV (16:05)
--- NOTE | 2022-09-17 16:31 | PM.OBPNLAB ---
Date/Time Date Patient Seen: 09/17/22 Time Patient Seen: 16:32 Pain Control Pain control: epidural Comments: Has been struggling with nausea, treated with IV ondansetron, but otherwise comfortable. Pitocin had been restarted but shut off again after late decelerations after vomiting. VS: BP 137/74mmHg, HR 93bpm, T 36.2C Temporal Pelvic Exam Dilation (cm): 7 Effacement (%): 90 station: -3 Amniotic membrane status: Ruptured (with FSE) Comments: FSE placed clear fluid Contractions Monitor mode: External Pitocin rate (mU/min): 0 Contraction frequency (min): 3 Contraction pattern: Regular Contraction intensity: Mild Status status: Category ll Heart Rate Baseline: 140 Monitor Accelerations: Absent Monitor Decelerations: Late (currently resolved) Monitor Variability: Moderate Assessment and Plan Assessment: active labor Plan: continuous present management Comments: Reassess in 4 hours or sooner, PRN.
[2022-09-17] MEDS: CALCIUM CARBONATE 500 MG TAB 1000 MG PO ×2 (17:53→21:20)
--- NOTE | 2022-09-17 22:08 | P.PNOB_ITS ---
Date/Time Date Patient Seen: 09/17/22 Time Patient Seen: 21:53 Pain Control Pain control: epidural Comments: CNM called to room for prolonged deceleration. Slow resolution with position changes, IVFB and O2 @ 10L per non rebreather mask. Second prolonged deceration 20 minutes later with similar response. VS: BP 136/82, HR 80bpm, T 36.3C Temporal Pelvic Exam Dilation (cm): 8 Effacement (%): 90 station: -2 Amniotic membrane status: Leaking (clear) Contractions Monitor mode: External Pitocin rate (mU/min): 0 Contraction frequency (min): 3 Contraction pattern: Regular Contraction intensity: Mild Status status: Category ll Heart Rate Baseline: 140 Monitor Accelerations: Absent Monitor Decelerations: Prolonged Monitor Variability: Moderate Comments: FSE Assessment and Plan Assessment: other ( intolerance of labor) Plan: Comments: supervisor bleach plant notified and called for consultation for primary .
[2022-09-17] MEDS: TERBUTALINE 1 MG/ML VIAL SUBCUT (22:29)
[2022-09-17] MEDS: CITRIC ACID/SODIUM CITRATE 15 ML SOLUTION 30 ML PO (22:32)
[2022-09-17] MEDS: CEFAZOLIN VIAL 2 GM in SODIUM CHLORIDE 0.9% 100 ML IV (22:55)
--- NOTE | 2022-09-17 23:26 | DI.RAD.S_ITS ---
PROCEDURE: XR ABDOMEN 1V INDICATIONS: post emergency c section inter op TECHNIQUE: One view of the abdomen acquired. COMPARISON: , [facility] X[facility] (1 VIEW ABDOMEN), 08/16/2015, 21:00. FINDINGS: Limited lateral view of the pelvis is markedly limited due to body habitus. No definite radiopaque foreign body identified in the pelvis. IMPRESSION: 1. Limited lateral view of the pelvis demonstrates no definite radiopaque foreign body. Dictated by: Mason Lucas M.D. on 09/18/2022 at 2:27 Approved by: Mason Lucas M.D. on 09/18/2022 at 2:46
--- NOTE | 2022-09-17 23:41 | SUR.OPER ---
Supine on Padded OR bed, head on pillow, safety belt at thigh, arms secured on padded arm boards at <90 degrees abduction. Bump under right buttock. Legs uncrossed with pillow under knees, gel pad to heels, tape over blanket to lower legs.
[2022-09-17 23:56] VITALS: BP 115/77; PULSE 113; RESP 24; TEMP 36.9; O2SAT 99
[2022-09-18 00:02] VITALS: BP 111/54; PULSE 108; RESP 40; O2SAT 100
--- NOTE | 2022-09-18 00:02 | PM.OBCS.1 ---
Operative Date/Time/Diagnoses Date of procedure: 09/17/22 Pre-op diagnosis: 39w0d gestation GDMA1 AMA GBS negative Rh positive Nonreassuring heart tones Post-op diagnosis: same Procedure & Clinicians Procedure: Primary Same procedure as scheduled: Yes Indications: Nonreassuring heart tones Surgeon: Adela Ames Electronic Sensing Equipment Assembler: Lola Pelayo Anesthesia Type: Epidural Operative Notes Findings: Normal uterus, ovaries, and tubes Closure Type: primary Specimen(s): cord blood and cord pH Intraoperative meds administered: Ketorolac and Pitocin Applied: Catheter Estimated Blood Loss (mL): 900 Procedure in detail: OPERATIVE COURSE: The patient was taken to the operating room where epidual anesthesia was bolused. She was then prepared and draped in the normal sterile fashion in the dorsal supine position with a leftward tilt. Anesthesia was tested and found to be adequate. A Pfannensteil skin incision was then made with the scalpel and carried through to the underlying layer of fascia with the scalpel. The fascia was incised in the midline and the incision extended laterally bluntly with Smith-Kong method. The superior aspect of the fascial incision was then grasped with Shahab clamps, elevated with the help of the director medical surgical, and the underlying rectus muscles dissected off bluntly. Attention was then turned to the inferior aspect of the incision which, in a similar fashion, was grasped, tented up with Shahab clamps, and the rectus muscle dissected off bluntly. The rectus muscles were then in the midline, and the peritoneum was identified and entered bluntly. The peritoneal incision was then extended with good visualization of the bladder. Retraction was provided by the director medical surgical. The bladder blade was then inserted and the vesicouterine peritoneum identified, grasped with pick-ups and entered sharply with the Metzenbaum scissors. The incision was then extended laterally and the bladder flap created digitally. The bladder blade was then reinserted and the lower uterine segment incised in a transverse fashion with the scalpel, with the director medical surgical providing suction. The uterine incision was then extended superolaterally by pulling superolaterally on both sides. Membranes were ruptured and fluid was clear. The bladder blade was removed the 's head was flexed out of OP position and delivered atraumatically, with fundal pressure by the director medical surgical. The nose and mouth were suctioned with bulb suction and the cord was clamped and cut after 1 minute. The infant was handed off to the waiting nursing staff. Cord blood was collected for Rh status. Cord gases were sent. The placenta was then delivered with gentle cord traction. The uterus was then cleared of all clots and debris. The uterine incision was repaired with O-Vicryl in a running, locked fashion. A second layer of the same suture was used for imbrication. O-Vicryl was used in two [id number] on the left aspect of the incision to obtain excellent hemostasis. The gutters were cleared of all clots. Hysterotomy was investigated and found to be hemostatic. Bladder flap was repaired with 2-O Chromic. The peritoneum was closed with 3-O Vicryl. The fascia was reapproximated with O-Vicryl in a running fashion. The subcutaneous tissue was reapproximated with 3-O Vicryl. The skin was closed with 4-O Vicryl. The director medical surgical helped with retraction during closures. SPONGE AND NEEDLE COUNTS: Correct x3. Abdominal x-ray completed that was negative. DRESSING: Aquacel ANTICOAGULATION: SCDs applied prior to Surgery Preop antibiotics given (see MAR). The patient was taken to recovery room having tolerated procedure well. Complications: none [place] Baby 1: Gender: Male Presentation: vertex Position: Occiput Posterior Placental Delivery Description: Spontaneous Cord Vessel Description: 3 Vessels and Nuchal Cord (x2) score (1 min): 7 score (5 min): 9 weight: 6 lb 2.309 oz Post-operative Condition: stable Disposition: PACU Aftercare: routine postop
--- NOTE | 2022-09-18 00:03 | PM.PREOP ---
Pre-operative Note COVID-19 COVID-19 status: Negative Result date/Date tested (Pos, Neg/Pending): 09/17/22 Interval Note History & Physical reviewed/Exam performed by Physician: Yes Changes to H&P: No
[2022-09-18 00:05] VITALS: BP 115/62; PULSE 106; RESP 21; O2SAT 100
--- NOTE | 2022-09-18 00:08 | PM.PROC.1 ---
Procedures Date/Time Date of procedure: 09/17/22 Time of procedure: 22:52 General Procedure description: Botany Professor Documentation I assisted the OB vocational rehabilitation administrator in the section for this patient. My responsibilities included retracting and suctioning, providing fundal pressure during delivery and following with suture during closure. Please see the OB's note for details of the surgery.
--- NOTE | 2022-09-18 00:20 | SUR.OPER ---
Viable baby boy delivered at 2252. Placenta and cord blood tubes X2 done by L&D RN.
[2022-09-18] MEDS: KETOROLAC 30 MG/ML VIAL IV ×4 (02:04→20:00)
[2022-09-18] MEDS: ACETAMINOPHEN 325 MG TABLET 650 MG PO ×4 (02:05→20:01)
[2022-09-18] MEDS: ONDANSETRON 4 MG/2 ML INJ IV (06:50)
--- NOTE | 2022-09-18 09:15 | PM.OBPN.1 ---
Subjective - OB Subjective Patient comments: pain well controlled [place] baby status: other (Rooming in) feeding status: other (D10 and formula supplementation for low blood glucose) Narrative: 11 hours s/p primary for intolerance of labor. Doing well, currently on bed rest. Pain is well controlled and patient has been able to sleep. Tolerating clear liquids for now and planning slow start of solids after a nap. Pumping colostrum for baby. Vaginal bleeding is scant. Springer is draining clear, yellow urine. Date Patient Seen: 09/18/22 Time Patient Seen: 09:18 Exam Vital Signs (past 8 hours): Oxygen Delivery Method Room Air BP 125/76mmHg, HR 73bpm, RR 16/min, T 97.8F Temporal Skin Other: LTAI- dressing is clean, dry and intact, no drainage noted Objective Labs Result Diagrams: 09/17/22 07:55 Labs: Laboratory Results - last 24 hr 09/17/22 07:55 Blood Type O Positive Antibody Screen Negative Assessment & Plan Assessment and Plan (1) S/P primary low transverse : Status: Acute Plan day: 1 plan OB: routine postop care Time Spent With Patient Time: Total time spent is greater than 50% in coordination of care (as documented) at patient's floor/unit and/or counseling patient: Time with patient: less than 15 minutes
[2022-09-18 11:46] LABS: Add Manual Diff / Slide Review NO; Basophils Absolute Auto 0 /uL (0-100); Basophils Percent Auto 0.2 % (0-2); Eosinophils Absolute Auto 0 /uL (0-450); Hematocrit 27.1 % (36-46); Hemoglobin 9.1 g/dL (12.0-16.0); Lymphocytes Absolute Auto 1200 /uL (1100-4500); Lymphocytes Percent Auto 11.6 % (25-40); Mean Corpuscular HGB Conc 33.5 % (30-36); Mean Corpuscular Hemoglobin 27.3 PG (26-34); Mean Corpuscular Volume 81.4 fL (80-100); Monocytes Absolute Auto 500 /uL (0-900); Monocytes Percent Auto 4.6 % (3-14); Neutrophils Absolute Auto 8600 /uL (1500-7000); Neutrophils Percent Auto 83.6 % (50-75); Platelet Count 189 X10^3/uL (150-400); Red Blood Cell Count 3.33 X10^6/uL (4.0-5.2); Red Cell Distribution Width 15.3 % (11.6-14.8); White Blood Cell Count 10.3 X10^3/uL (4.5-11.0)
--- NOTE | 2022-09-19 03:01 | PM.OBDS.1 ---
Discharge Providers Provider Date of admission: 09/17/22 07:04 Discharge Date: 09/19/22 Primary care physician: Brianna Stanley ND Consults: 09/17/22 07:22 Consult to Anesthesiology Urgent Comment: Consulting Provider: Anesthesiologist Reason for consultation: at 11am Has provider been notified: Yes 09/18/22 01:46 Consult to Salesperson Neckties Routine Comment: Discharge provider: Lola Pelayo CNM Summary Hospital Course Date Patient Seen: 09/19/22 Time Patient Seen: 03:02 Diagnoses: Primary for intolerance of labor Hospital Course: PPD2: Regina has had a routine post-op/ course. Voiding, ambulating and independently, though baby is supplemented with formula and colostrum d/t low blood sugars. Pain is well controlled with PO medication. Vaginal bleeding is light, without clots. Low transverse abdominal incision dressing is dry and intact. Tolerating a general diet and passing flatus. Feels ready for discharge to home today if baby Emmett is ready. Peripartum Data Infant Delivery Method: Section complications: none 1: Gender: Male Disposition of : home Discharge Diagnosis (1) S/P primary low transverse : Status: Acute Problem Details: routine post-op course Status at Discharge Cognitive/behavioral status at discharge: oriented and calm Functional status at discharge: independent ambulation Time Spent with Patient Time attestation: Total time spent providing and/or coordinating discharge services: Objective Labs Result Diagrams: 09/18/22 09:33 Labs: Laboratory Results - last 24 hr 09/18/22 09:33 WBC 10.3 RBC 3.33 L Hgb 9.1 L Hct 27.1 L MCV 81.4 MCH 27.3 MCHC 33.5 RDW 15.3 H Plt Count 189 Neut % (Auto) 83.6 H Lymph % (Auto) 11.6 L [place] % (Auto) 4.6 Eos % (Auto) 0.0 L Baso % (Auto) 0.2 Neut # (Auto) 8600 H Lymph # (Auto) 1200 [place] # (Auto) 500 Eos # (Auto) 0 Baso # (Auto) 0 Exam Vital Signs (past 8 hours): Oxygen Delivery Method Room Air BP 118/76mmHg, HR 98bpm, RR 16/min, T 97.9F Temporal, SpO2 97% on RA Other: Fundus firm @ U-1, lochia scant Abdominal dressing is dry and intact Discharge Plan Discharge Plan Patient Disposition: Home Provider Discharge Comment: once baby is discharged Discharge orders & Medications Prescriptions: New oxycodone 5 mg Tablet 5 mg PO Q4H PRN (Reason: Pain, Moderate (4-6)) 10 Days Qty: 20 0RF docusate sodium 100 mg Capsule 200 mg PO DAILY 14 Days Qty: 30 0RF ibuprofen 600 mg Tablet 600 mg PO Q6H PRN (Reason: Fever/Mild Pain (1-3)) 14 Days Qty: 60 0RF No Action No Known Home Medications Follow up/Referrals: Brianna Stanley ND [Primary Care Provider] - Lola Pelayo CNM [Advanced Patient Relations Coordinator] - (Follow-up in office Saturday, September 26, 2022 at 2:15pm for a dressing removal/incision check Follow-up by phone Sunday, October 02, 2022 at 3:00pm Follow-up in office Saturday, October 29, 2022 at 11:15am) Diet/Activity/Treatments Activity: pelvic rest x 6 weeks, no heavy lifting x 4 weeks, no driving x 2 weeks Skin/Wound/Dressing Care Report to your healthcare provider any signs of infection, such as:: chills, fever, increased pain, unusual drainage and unusual redness Visit Report/Discharge Packet Instructions: DI for , DI for Depression Discharge Data Primary Care Provider: Brianna Stanley
[2022-09-19] MEDS: ACETAMINOPHEN 325 MG TABLET PO (03:59)
[2022-09-19] MEDS: IBUPROFEN 600 MG TABLET PO ×2 (04:00→09:50)
[2022-09-19] MEDS: ACETAMINOPHEN 325 MG TABLET 650 MG PO (09:50)
[2022-09-19 12:56] VITALS: BP 115/62; PULSE 106; RESP 21; TEMP 36.9
== END 2022-09-19 12:25 | disposition home or self-care (01) | DRG 788 ==
PROVIDERS: Family Medicine; Admitting Provider Nurse Practitioner Obstetrics & Gynecology; PCP Naturopath; Referring Provider Nurse Practitioner Obstetrics & Gynecology; Visit Provider Nurse Practitioner Obstetrics & Gynecology
PROC: 10D00Z1 Extraction of Products of Conception, Low, Open Approach (ICD-10-PCS; CPT 59514; principal; 2022-09-17 22:45)
DX: O76 Abnormality in fetal heart rate and rhythm complicating labor and delivery (principal); Z3A.38 38 weeks gestation of pregnancy; Z37.0 Single live birth; O24.420 Gestational diabetes mellitus in childbirth, diet controlled; O21.2 Late vomiting of pregnancy; Z20.822 Contact with and (suspected) exposure to COVID-19
CPT/HCPCS: 36415; 59050; 59514; 74018; 85025; 86850; 86900; 86901; 87635; C9803; G0379; J0690; J1885; J2274; J2405; J2590; J3010

== ENCOUNTER 2024-01-05 16:54 | Emergency (ER) | payer OTHER, SELFPAY ==
[2024-01-05] VITALS (17 sets, daily range): BP systolic 109–144; BP diastolic 67–92; PULSE 76–104; RESP 18; TEMP 36.7; O2SAT 93–98; BMI 31.8
--- NOTE | 2024-01-05 17:05 | ED_ITS ---
HPI - Abdominal Pain <Regina Street MD - Last Filed: 01/06/24 07:10> General Chief Complaint: Abdominal Pain Stated Complaint: abd and back pain Time Seen by Provider: 01/05/24 17:00 Source: patient Mode of arrival: Ambulatory History of Present Illness HPI narrative: 38-year-old female with no reported past medical history presents with 1 day midepigastric abdominal pain. Pain is sharp, constant, radiates to her back. Nothing seems to make it better or worse. Took ibuprofen yesterday without change in symptoms. Patient states she initially thought it was food poisoning but symptoms continued and did not seem to get better so she presented today for evaluation. Reports history of cholecystectomy, still has her appendix. Denies use of tobacco, alcohol, illicit substances Related Data Previous Rx's Medication Instructions Recorded albuterol sulfate 90 mcg/actuation 2 puff inhalation Q4-6H PRN 11/16/23 aerosol inhaler shortness of breath or wheezing #6.7 grams benzonatate 100 mg capsule 100 mg PO TID PRN cough #20 caps 11/16/23 inhalational spacing device (Austyn #1 ea 11/16/23 Aerosol [place] Enhancer spacer) metoclopramide HCl 10 mg tablet 10 mg PO Q6H PRN nausea and 01/05/24 (Reglan) vomiting #14 tabs Allergies Allergy/AdvReac Type Severity Reaction Status Date / Time hydrocodone [From VICODIN] Allergy Mild CHEST PAIN Verified 01/05/24 16:56 NARCOTICS Allergy Mild N/V Uncoded 11/16/23 07:26 Review of Systems <Regina Street MD - Last Filed: 01/06/24 07:10> Review of Systems Narrative: Negative except as noted above Patient History <Regina Street MD - Last Filed: 01/06/24 07:10> Medical History PCOS (polycystic ovarian syndrome) Chronic cough H/O menorrhagia Hx of migraines Surgical History History of cholecystectomy Social History Smoking Status: Never smoker second hand exposure: No alcohol intake: current (rare celebrations) substance use type: does not use Smoking Status: Never smoker alcohol intake frequency: holidays/special occasions only Substance Use Type: does not use Exam <Regina Street MD - Last Filed: 01/06/24 07:10> Initial Vital Signs Initial Vital Signs: Vital Signs Temperature 98.1 F 01/05/24 16:56 Pulse Rate 102 H 01/05/24 16:56 Respiratory Rate 18 01/05/24 16:56 Blood Pressure 132/74 01/05/24 16:56 Pulse Oximetry 97 01/05/24 16:56 Oxygen Delivery Method Room Air 01/05/24 16:56 Const: Awake, alert, tearful, in pain Cardiac: Tachycardia, regular rhythm RESP: unlabored, clear bilaterally, no wheezing GI: Soft, midepigastric tenderness to deep palpation, no rebound, no guarding MSK: Atraumatic, full range of motion, pulses equal Skin: Warm, Dry, intact, no rashes Neuro: AO x3, CN II-XII grossly intact, moves all extremities <Luc Watson DO - Last Filed: 01/06/24 00:09> Initial Vital Signs Initial Vital Signs: Vital Signs Temperature 98.1 F 01/05/24 16:56 Pulse Rate 102 H 01/05/24 16:56 Respiratory Rate 18 01/05/24 16:56 Blood Pressure 132/74 01/05/24 16:56 Pulse Oximetry 97 01/05/24 16:56 Oxygen Delivery Method Room Air 01/05/24 16:56 Course <Regina Street MD - Last Filed: 01/06/24 07:10> Orders Ordered: Discontinued Medications Al Hydrox/Mg Hydrox/Simethicone 20 ml/ Lidocaine HCl 15 ml 0 ml PO NOW ONE Stop: 01/05/24 18:51 Last Admin: 01/05/24 18:57 Dose: 20 ml Documented By: CARLEY Sodium Chloride (Normal Saline 0.9%) 1,000 mls @ 1,000 mls/hr IV BOLUS ONE Stop: 01/05/24 18:00 Last Infusion: 01/05/24 18:14 Dose: Infused Documented By: Admin: 01/05/24 17:12 Dose: 1,000 mls/hr Documented By: CARLEY Ketorolac Tromethamine (Ketorolac 30 Mg/Ml Vial) 30 mg IV NOW ONE Stop: 01/05/24 20:27 Last Admin: 01/05/24 20:33 Dose: 30 mg Documented By: CARLEY(2) Metoclopramide HCl (Metoclopramide 10 Mg/2 Ml Inj) 10 mg IV NOW ONE Stop: 01/05/24 20:27 Last Admin: 01/05/24 20:33 Dose: 10 mg Documented By: CARLEY(2) Morphine Sulfate (Morphine 4 Mg/Ml Inj) 4 mg IV NOW ONE Stop: 01/05/24 17:06 Last Admin: 01/05/24 17:19 Dose: 4 mg Documented By: CARLEY Morphine Sulfate (Morphine 4 Mg/Ml Inj) 4 mg IV NOW ONE Stop: 01/05/24 19:26 Last Admin: 01/05/24 19:33 Dose: 4 mg Documented By: CARLEY(2) Ondansetron HCl (Ondansetron 4 Mg/2 Ml Inj) 4 mg IV NOW ONE Stop: 01/05/24 17:02 Last Admin: 01/05/24 17:17 Dose: 4 mg Documented By: CARLEY Ondansetron HCl (Ondansetron 4 Mg/2 Ml Inj) 4 mg IV NOW ONE Stop: 01/05/24 19:26 Last Admin: 01/05/24 19:33 Dose: 4 mg Documented By: CARLEY(2) Ondansetron HCl (Ondansetron 4 Mg Odt Prepack) 1 bottle MISC DIRECTED ONE Stop: 01/05/24 21:18 Last Admin: 01/05/24 21:26 Dose: 1 bottle Documented By: CARLEY(2) Pantoprazole Sodium (Pantoprazole 40 Mg Vial) 40 mg IV NOW ONE Stop: 01/05/24 18:51 Last Admin: 01/05/24 18:58 Dose: 40 mg Documented By: CARLEY Vital Signs Vital signs: Vital Signs - 8 hr 01/05/24 16:56 01/05/24 17:02 01/05/24 17:03 Temperature 98.1 F Pulse Rate 102 H Respiratory Rate 18 Blood Pressure 132/74 144/92 H Pulse Oximetry 97 96 Oxygen Delivery Method Room Air 01/05/24 17:03 01/05/24 17:30 01/05/24 17:31 Temperature Pulse Rate 104 H 87 Respiratory Rate Blood Pressure 131/67 Pulse Oximetry 96 94 Oxygen Delivery Method 01/05/24 17:31 01/05/24 18:08 01/05/24 18:09 Temperature Pulse Rate 83 88 Respiratory Rate Blood Pressure 119/74 Pulse Oximetry 95 Oxygen Delivery Method 01/05/24 18:09 01/05/24 18:30 01/05/24 18:31 Temperature Pulse Rate 88 95 H Respiratory Rate Blood Pressure 124/77 Pulse Oximetry 98 97 Oxygen Delivery Method 01/05/24 18:31 01/05/24 19:00 01/05/24 19:00 Temperature Pulse Rate 88 86 Respiratory Rate Blood Pressure 125/86 Pulse Oximetry 98 96 Oxygen Delivery Method 01/05/24 19:30 01/05/24 19:30 01/05/24 20:00 Temperature Pulse Rate 83 86 Respiratory Rate Blood Pressure 109/76 Pulse Oximetry 95 98 Oxygen Delivery Method 01/05/24 20:30 01/05/24 20:32 01/05/24 20:32 Temperature Pulse Rate 88 89 Respiratory Rate Blood Pressure 117/74 Pulse Oximetry 93 94 Oxygen Delivery Method 01/05/24 21:00 01/05/24 21:27 01/05/24 21:27 Temperature Pulse Rate 76 80 Respiratory Rate Blood Pressure 109/67 Pulse Oximetry 95 94 Oxygen Delivery Method 01/05/24 21:30 Temperature Pulse Rate 80 Respiratory Rate Blood Pressure Pulse Oximetry 94 Oxygen Delivery Method <Luc Watson DO - Last Filed: 01/06/24 00:09> Orders Ordered: Discontinued Medications Al Hydrox/Mg Hydrox/Simethicone 20 ml/ Lidocaine HCl 15 ml 0 ml PO NOW ONE Stop: 01/05/24 18:51 Last Admin: 01/05/24 18:57 Dose: 20 ml Documented By: CARLEY Sodium Chloride (Normal Saline 0.9%) 1,000 mls @ 1,000 mls/hr IV BOLUS ONE Stop: 01/05/24 18:00 Last Infusion: 01/05/24 18:14 Dose: Infused Documented By: Admin: 01/05/24 17:12 Dose: 1,000 mls/hr Documented By: CARLEY Ketorolac Tromethamine (Ketorolac 30 Mg/Ml Vial) 30 mg IV NOW ONE Stop: 01/05/24 20:27 Last Admin: 01/05/24 20:33 Dose: 30 mg Documented By: CARLEY(2) Metoclopramide HCl (Metoclopramide 10 Mg/2 Ml Inj) 10 mg IV NOW ONE Stop: 01/05/24 20:27 Last Admin: 01/05/24 20:33 Dose: 10 mg Documented By: CARLEY(2) Morphine Sulfate (Morphine 4 Mg/Ml Inj) 4 mg IV NOW ONE Stop: 01/05/24 17:06 Last Admin: 01/05/24 17:19 Dose: 4 mg Documented By: CARLEY Morphine Sulfate (Morphine 4 Mg/Ml Inj) 4 mg IV NOW ONE Stop: 01/05/24 19:26 Last Admin: 01/05/24 19:33 Dose: 4 mg Documented By: CARLEY(2) Ondansetron HCl (Ondansetron 4 Mg/2 Ml Inj) 4 mg IV NOW ONE Stop: 01/05/24 17:02 Last Admin: 01/05/24 17:17 Dose: 4 mg Documented By: CARLEY Ondansetron HCl (Ondansetron 4 Mg/2 Ml Inj) 4 mg IV NOW ONE Stop: 01/05/24 19:26 Last Admin: 01/05/24 19:33 Dose: 4 mg Documented By: CARLEY(2) Ondansetron HCl (Ondansetron 4 Mg Odt Prepack) 1 bottle MISC DIRECTED ONE Stop: 01/05/24 21:18 Last Admin: 01/05/24 21:26 Dose: 1 bottle Documented By: CARLEY(2) Pantoprazole Sodium (Pantoprazole 40 Mg Vial) 40 mg IV NOW ONE Stop: 01/05/24 18:51 Last Admin: 01/05/24 18:58 Dose: 40 mg Documented By: CARLEY Vital Signs Vital signs: Vital Signs - 8 hr 01/05/24 16:56 01/05/24 17:02 01/05/24 17:03 Temperature 98.1 F Pulse Rate 102 H Respiratory Rate 18 Blood Pressure 132/74 144/92 H Pulse Oximetry 97 96 Oxygen Delivery Method Room Air 01/05/24 17:03 01/05/24 17:30 01/05/24 17:31 Temperature Pulse Rate 104 H 87 Respiratory Rate Blood Pressure 131/67 Pulse Oximetry 96 94 Oxygen Delivery Method 01/05/24 17:31 01/05/24 18:08 01/05/24 18:09 Temperature Pulse Rate 83 88 Respiratory Rate Blood Pressure 119/74 Pulse Oximetry 95 Oxygen Delivery Method 01/05/24 18:09 01/05/24 18:30 01/05/24 18:31 Temperature Pulse Rate 88 95 H Respiratory Rate Blood Pressure 124/77 Pulse Oximetry 98 97 Oxygen Delivery Method 01/05/24 18:31 01/05/24 19:00 01/05/24 19:00 Temperature Pulse Rate 88 86 Respiratory Rate Blood Pressure 125/86 Pulse Oximetry 98 96 Oxygen Delivery Method 01/05/24 19:30 01/05/24 19:30 01/05/24 20:00 Temperature Pulse Rate 83 86 Respiratory Rate Blood Pressure 109/76 Pulse Oximetry 95 98 Oxygen Delivery Method 01/05/24 20:30 01/05/24 20:32 01/05/24 20:32 Temperature Pulse Rate 88 89 Respiratory Rate Blood Pressure 117/74 Pulse Oximetry 93 94 Oxygen Delivery Method 01/05/24 21:00 01/05/24 21:27 01/05/24 21:27 Temperature Pulse Rate 76 80 Respiratory Rate Blood Pressure 109/67 Pulse Oximetry 95 94 Oxygen Delivery Method 01/05/24 21:30 Temperature Pulse Rate 80 Respiratory Rate Blood Pressure Pulse Oximetry 94 Oxygen Delivery Method MDM - Abdominal Pain <Regina Street MD - Last Filed: 01/06/24 07:10> Lab Data 01/05/24 17:13 01/05/24 17:13 Labs: Lab Results 01/05/24 01/05/24 Range/Units 17:13 17:50 WBC 7.7 (4.5-11.0) X10^3/uL RBC 5.13 (4.0-5.2) X10^6/uL Hgb 14.2 (12.0-16.0) g/dL Hct 42.5 (36-46) % MCV 82.9 (80-100) fL MCH 27.7 (26-34) PG MCHC 33.5 (30-36) % RDW 13.2 (11.6-14.8) % Plt Count 340 (150-400) X10^3/uL Neut % (Auto) 65.5 (50-75) % Lymph % (Auto) 22.0 L (25-40) % Ward % (Auto) 8.0 (3-14) % Eos % (Auto) 3.6 (2-4) % Baso % (Auto) 0.9 (0-2) % Neut # (Auto) 5000 (3310-2743) /uL Lymph # (Auto) 1700 (3156-2586) /uL Ward # (Auto) 600 (0-900) /uL Eos # (Auto) 300 (0-450) /uL Baso # (Auto) 100 (0-100) /uL Sodium 138 (137-145) mmol/L Potassium 3.9 (3.4-5.1) mmol/L Chloride 106 (98-107) mmol/L Carbon Dioxide 24 (22-32) mmol/L BUN 16 (7-17) mg/dL Creatinine 0.56 (0.52-1.04) mg/dL Estimated GFR > 60 (>60) mL/min BUN/Creatinine Ratio 28.6 H (6-22) Glucose 104 H (70-100) mg/dL Calcium 9.4 (8.4-10.2) mg/dL Total Bilirubin 0.5 (0.2-1.3) mg/dL AST 21 (14-36) IU/L ALT 19 (<35) IU/L Alkaline Phosphatase 70 (38-126) U/L Total Protein 8.2 (6.3-8.2) g/dL Albumin 4.5 (3.5-5.0) g/dL Globulin 3.7 (1.7-4.1) g/dL Albumin/Globulin Ratio 1.2 (1.0-2.8) Lipase 122 (23-300) U/L Urine RBC 1-5/hpf (0-5/HPF) Urine WBC None seen (0-5/HPF) Ur Squamous Epith Cells 1-5 /hpf (0-5/HPF) Urine Bacteria Few (2-10) H (None) Ur Culture Indicated? Cult not indicated Vol Urine Centrifuged 10ml (spun) Point of care testing: Point of Care Testing Test Results Negative Urine Dip Bedside Urine Glucose Negative Bedside Urine Bilirubin - Negative Bedside Urine Ketone - Negative Urine Specific [place] 1.015 Bedside Urine Occult Blood +++ Bedside Urine pH 6.5 Bedside Urine Protein - Negative Bedside Urine Urobilinogen - Negative Bedside Urine Nitrite - Negative Bedside Urine Leukocytes - Negative Esterase MDM Narrative Medical decision making narrative: Uncomfortable but nontoxic patient presenting with 24 hours of midepigastric pain. Abdomen is soft but she was tearful and does seem to have significant discomfort in the midepigastric region to palpation. No peritoneal signs. Labs, CT imaging, pain, nausea medications ordered. Labs and imaging pending, care of patient is signed out to Dr. Watson at 6:[address] Watson: Received turned over. He reviewed patient's history and physical exam. Labs are unremarkable. CT scan shows no acute pathology. Patient did feel better after Reglan and Toradol. The other medications were only minimally helpful. No indication for antibiotics. No indication for surgical consultation. I do feel that we can hold on further radiologic studies. Will discharge home with symptom treatment. She was given return precautions. She expressed understanding and agreement. <Luc Watson, DO - Last Filed: 01/06/24 00:09> Lab Data Attestation: I reviewed the patient's lab results. Labs: Lab Results 01/05/24 01/05/24 Range/Units 17:13 17:50 WBC 7.7 (4.5-11.0) X10^3/uL RBC 5.13 (4.0-5.2) X10^6/uL Hgb 14.2 (12.0-16.0) g/dL Hct 42.5 (36-46) % MCV 82.9 (80-100) fL MCH 27.7 (26-34) PG MCHC 33.5 (30-36) % RDW 13.2 (11.6-14.8) % Plt Count 340 (150-400) X10^3/uL Neut % (Auto) 65.5 (50-75) % Lymph % (Auto) 22.0 L (25-40) % Ward % (Auto) 8.0 (3-14) % Eos % (Auto) 3.6 (2-4) % Baso % (Auto) 0.9 (0-2) % Neut # (Auto) 5000 (6206-9450) /uL Lymph # (Auto) 1700 (8378-6438) /uL Ward # (Auto) 600 (0-900) /uL Eos # (Auto) 300 (0-450) /uL Baso # (Auto) 100 (0-100) /uL Sodium 138 (137-145) mmol/L Potassium 3.9 (3.4-5.1) mmol/L Chloride 106 (98-107) mmol/L Carbon Dioxide 24 (22-32) mmol/L BUN 16 (7-17) mg/dL Creatinine 0.56 (0.52-1.04) mg/dL Estimated GFR > 60 (>60) mL/min BUN/Creatinine Ratio 28.6 H (6-22) Glucose 104 H (70-100) mg/dL Calcium 9.4 (8.4-10.2) mg/dL Total Bilirubin 0.5 (0.2-1.3) mg/dL AST 21 (14-36) IU/L ALT 19 (<35) IU/L Alkaline Phosphatase 70 (38-126) U/L Total Protein 8.2 (6.3-8.2) g/dL Albumin 4.5 (3.5-5.0) g/dL Globulin 3.7 (1.7-4.1) g/dL Albumin/Globulin Ratio 1.2 (1.0-2.8) Lipase 122 (23-300) U/L Urine RBC 1-5/hpf (0-5/HPF) Urine WBC None seen (0-5/HPF) Ur Squamous Epith Cells 1-5 /hpf (0-5/HPF) Urine Bacteria Few (2-10) H (None) Ur Culture Indicated? Cult not indicated Vol Urine Centrifuged 10ml (spun) Point of care testing: Point of Care Testing Test Results Negative Urine Dip Bedside Urine Glucose Negative Bedside Urine Bilirubin - Negative Bedside Urine Ketone - Negative Urine Specific [place] 1.015 Bedside Urine Occult Blood +++ Bedside Urine pH 6.5 Bedside Urine Protein - Negative Bedside Urine Urobilinogen - Negative Bedside Urine Nitrite - Negative Bedside Urine Leukocytes - Negative Esterase Imaging Data CT scan - abdomen/pelvis: Radiologist's Impression: PROCEDURE: CT ABDOMEN PELVIS W CON INDICATIONS: MIDEPIGASTRIC TO BACK PAIN X24HRS TECHNIQUE: After the administration of intravenous contrast, axial sections acquired from the lung bases to the pubic symphysis. Coronal and sagittal reformats were performed. For radiation dose reduction, the following was used: automated exposure control, adjustment of mA and/or kV according to patient size. COMPARISON: None. FINDINGS: Image quality: Diagnostic. Lower Chest: No significant findings. ABDOMEN: Liver: No solid mass. Gallbladder: THE GALLBLADDER IS SURGICALLY ABSENT. Biliary ducts: No biliary dilation. Pancreas: No ductal dilation. Spleen: Size is within normal limits. Adrenal Glands: No adrenal nodules. Kidneys and Ureters: No hydronephrosis. No solid mass. No complex renal cystic lesion which requires follow up. Stomach and Bowel: Normal colonic caliber, without significant wall thickening. Normal appendix. A few colonic diverticula. Peritoneum: No abnormal intraperitoneal fluid. No free air. Ventral Wall: No significant ventral hernia. Abdominal Nodes: No retroperitoneal or mesenteric adenopathy by size criteria. Vessels: Aorta and inferior vena cava are normal in size. PELVIS: Pelvic Organs: Unremarkable. Bladder: No bladder wall thickening, accounting for underdistention. Pelvic Nodes: No enlarged lymph nodes. Miscellaneous: No inguinal hernias are seen. Bones: No aggressive osseous abnormality. Transitional anatomy with sacralization of L5. IMPRESSION: No acute findings within the abdomen or pelvis to explain the patient's symptoms. MDM Narrative Medical decision making narrative: Uncomfortable but nontoxic patient presenting with 24 hours of midepigastric pain. Abdomen is soft but she was tearful and does seem to have significant discomfort in the midepigastric region to palpation. No peritoneal signs. Labs, CT imaging, pain, nausea medications ordered. Dr Watson: Received turned over. He reviewed patient's history and physical exam. Labs are unremarkable. CT scan shows no acute pathology. Patient did feel better after Reglan and Toradol. The other medications were only minimally helpful. No indication for antibiotics. No indication for surgical consultation. I do feel that we can hold on further radiologic studies. Will discharge home with symptom treatment. She was given return precautions. She expressed understanding and agreement. Discharge Plan Departure Patient Disposition: Home Clinical Impression: Abdominal pain Instructions: DI for Abdominal Pain-Adult Activity Restrictions/Additional Instructions: I do recommend a bland diet for the next couple days. You can use the Reglan as needed for any nausea. I also recommend that you start on medications to help for potential issues with a stomach ulcer. This medication can be purchased [id number]. It is called famotidine/Pepcid. Contact your primary doctor for follow-up. Return to the emergency department for new symptoms. Prescriptions: New metoclopramide HCl [Reglan] 10 mg tablet 10 mg PO Q6H PRN (Reason: nausea and vomiting) Qty: 14 0RF No Action albuterol sulfate 90 mcg/actuation HFA aerosol inhaler 2 puff inhalation Q4-6H PRN (Reason: shortness of breath or wheezing) Qty: 6.7 0RF (DME) Austyn Aerosol [place] Enhancer Spacer See Rx Instructions .Route Qty: 1 0RF Rx Instructions: As directed benzonatate 100 mg capsule 100 mg PO TID PRN (Reason: cough) Qty: 20 0RF Referrals: Brianna Stanley ND [Primary Care Provider] - Stand Alone Forms: Patient Portal/API
[2024-01-05] MEDS: SODIUM CHLORIDE 0.9% 1,000 ML 1000 ML IV (17:12)
[2024-01-05] MEDS: ONDANSETRON 4 MG/2 ML INJ IV ×2 (17:17→19:33)
[2024-01-05] MEDS: MORPHINE 4 MG/ML INJ IV ×2 (17:19→19:33)
[2024-01-05 17:21] LABS: Add Manual Diff / Slide Review NO; Basophils Absolute Auto 100 /uL (0-100); Basophils Percent Auto 0.9 % (0-2); Eosinophils Absolute Auto 300 /uL (0-450); Eosinophils Percent Auto 3.6 % (2-4); Hematocrit 42.5 % (36-46); Hemoglobin 14.2 g/dL (12.0-16.0); Lymphocytes Absolute Auto 1700 /uL (1100-4500); Mean Corpuscular HGB Conc 33.5 % (30-36); Mean Corpuscular Hemoglobin 27.7 PG (26-34); Mean Corpuscular Volume 82.9 fL (80-100); Monocytes Absolute Auto 600 /uL (0-900); Neutrophils Absolute Auto 5000 /uL (1500-7000); Neutrophils Percent Auto 65.5 % (50-75); Platelet Count 340 X10^3/uL (150-400); Red Blood Cell Count 5.13 X10^6/uL (4.0-5.2); Red Cell Distribution Width 13.2 % (11.6-14.8); White Blood Cell Count 7.7 X10^3/uL (4.5-11.0)
--- NOTE | 2024-01-05 17:33 | PC.NURSE ---
Pt denies N/V, diarrhea, recent sick contacts, dysuria, pain with urinating, or hx of kidney stones, etc.
[2024-01-05 17:34] LABS: Alanine Aminotransferase 19 IU/L (<35); Albumin 4.5 g/dL (3.5-5.0); Albumin Globulin Ratio 1.2 (1.0-2.8); Alkaline Phosphatase 70 U/L (38-126); Aspartate Aminotransferase 21 IU/L (14-36); BUN Creatinine Ratio 28.6 (6-22); Bilirubin Total 0.5 mg/dL (0.2-1.3); Blood Urea Nitrogen 16 mg/dL (7-17); Calcium 9.4 mg/dL (8.4-10.2); Carbon Dioxide 24 mmol/L (22-32); Chloride 106 mmol/L (98-107); Estimated Glomerular Filt Rate > 60 mL/min (>60); Globulin 3.7 g/dL (1.7-4.1); Glucose 104 mg/dL (70-100); HEMOLYSIS < 15 (0-50); Lipase 122 U/L (23-300); Potassium 3.9 mmol/L (3.4-5.1); Sodium 138 mmol/L (137-145); Total Protein 8.2 g/dL (6.3-8.2)
[2024-01-05 18:02] LABS: RBC Urine 1-5/HPF (0-5/HPF); Urine Volume 10mL (spun)
[2024-01-05 18:03] LABS: Bacteria Urine Few (2-10); Culture Indicated Urine Cult Not Indicated; Squamous Epithelial Cell Urine 1-5 /HPF (0-5/HPF); WBC Urine None Seen (0-5/HPF)
[2024-01-05] MEDS: MAG HYDROX/ALUMINUM/SIMETH SUS 20 ML, LIDOCAINE VISCOUS 2% 15 ML PO (18:57)
[2024-01-05] MEDS: PANTOPRAZOLE 40 MG VIAL IV (18:58)
--- NOTE | 2024-01-05 19:25 | PC.NURSE ---
Pt reports no relief after pain meds, still c/o epigastric pain 05/23. Dr Watson aware.
[2024-01-05] MEDS: KETOROLAC 30 MG/ML VIAL IV (20:33)
[2024-01-05] MEDS: METOCLOPRAMIDE 10 MG/2 ML INJ IV (20:33)
[2024-01-05] MEDS: ONDANSETRON 4 MG ODT PREPACK 1 BOTTLE MISC (21:26)
== END 2024-01-05 21:35 | disposition home or self-care (01) ==
PROVIDERS: Emergency Medicine; Emergency Provider Emergency Medicine; PCP Naturopath
DX: R10.13 Epigastric pain (principal)
CPT/HCPCS: 36415; 74177; 80053; 81003; 81015; 81025; 83690; 85025; 96361; 96374; 96375; 96376; 99284; C9113; J1885; J2270; J2405; J2765; Q9967

== ENCOUNTER → 2024-12-14 09:17 | Outpatient (CLI) | payer OTHER, SELFPAY ==
[2024-12-14 10:24] LABS: Add Manual Diff / Slide Review NO; Basophils Absolute Auto 100 /uL (0-100); Eosinophils Absolute Auto 100 /uL (0-450); Eosinophils Percent Auto 2.2 % (2-4); Hematocrit 37.3 % (36-46); Hemoglobin 12.8 g/dL (12.0-16.0); Lymphocytes Absolute Auto 1600 /uL (1100-4500); Lymphocytes Percent Auto 33.3 % (25-40); Mean Corpuscular HGB Conc 34.2 % (30-36); Mean Corpuscular Hemoglobin 28.5 PG (26-34); Mean Corpuscular Volume 83.2 fL (80-100); Monocytes Absolute Auto 300 /uL (0-900); Monocytes Percent Auto 6.3 % (3-14); Neutrophils Absolute Auto 2800 /uL (1500-7000); Neutrophils Percent Auto 57.2 % (50-75); Platelet Count 340 X10^3/uL (150-400); Red Blood Cell Count 4.48 X10^6/uL (4.0-5.2); Red Cell Distribution Width 13.5 % (11.6-14.8); White Blood Cell Count 4.9 X10^3/uL (4.5-11.0)
[2024-12-14 10:28] LABS: Hemoglobin A1C% w Est Avg Glu 4.9 % (4.0-6.0)
[2024-12-14 10:32] LABS: Alanine Aminotransferase 33 IU/L (<35); Albumin 4.5 g/dL (3.5-5.0); Albumin Globulin Ratio 1.5 (1.0-2.8); Alkaline Phosphatase 47 U/L (38-126); Aspartate Aminotransferase 29 IU/L (14-36); BUN Creatinine Ratio 28.4 (6-22); Bilirubin Total 0.5 mg/dL (0.2-1.3); Blood Urea Nitrogen 19 mg/dL (7-17); Calcium 8.6 mg/dL (8.4-10.2); Carbon Dioxide 26 mmol/L (22-32); Chloride 102 mmol/L (98-107); Cholesterol 224 mg/dL (140-199); Estimated Glomerular Filt Rate > 60 mL/min (>60); Glucose 92 mg/dL (70-100); HDL Cholesterol 41 mg/dL (40-60); HEMOLYSIS < 15 (0-50); LDL Cholesterol Calculated 161 mg/dL (<100); Potassium 4.3 mmol/L (3.4-5.1); Sodium 137 mmol/L (137-145); Total Protein 7.5 g/dL (6.3-8.2); Triglycerides 108 mg/dL (35-150)
[2024-12-14 10:44] LABS: HEMOLYSIS < 15 (0-50); Iron 80 ug/dL (37-170)
[2024-12-14 10:55] LABS: Percent Iron Saturation 23 % (15-50); Total Iron Binding Capacity 346 ug/dL (265-497); Transferrin 315 mg/dL (206-381)
[2024-12-14 11:06] LABS: Ferritin 17 ng/mL (6-137)
== END ==
PROVIDERS: PCP Naturopath; Referring Provider Naturopath; Visit Provider Naturopath
DX: Z00.00 Encounter for general adult medical examination without abnormal findings (principal); D50.9 Iron deficiency anemia, unspecified; E28.2 Polycystic ovarian syndrome
CPT/HCPCS: 36415; 80053; 80061; 82728; 83036; 83540; 83550; 84443; 85025